=== PATIENT | female | born 1990 | race Caucasian/White ===

== ENCOUNTER 2019-07-06 17:17 | Inpatient (IN) | payer MEDICAID ==
[~2019-07-06] VITALS: Ht 165.1 cm; Wt 84.5 kg
[2019-07-06 17:54] VITALS: BP 109/67
[2019-07-06] MEDS ORDERED: OXYTOCIN 30U/ 0.9% NaCL 500ML 500 ML ONE (19:14)
[2019-07-06] MEDS ORDERED: NEWBORN KIT ONE (19:14)
[2019-07-06] MEDS ORDERED: SODIUM CITRATE/CITRIC ACID 30 ML UDC ONE (19:23)
[2019-07-06] MEDS ORDERED: METOCLOPRAMIDE 5 MG/ML, 2ML ONE (19:23)
[2019-07-06 19:28] LABS: BASOPHILS # (AUTO) 0.04 x10^3/uL (0-0.1); BASOPHILS % (AUTO) 0 % (0-1); EOSINOPHILS # (AUTO) 0.16 x10^3/uL (0-0.4); EOSINOPHILS % (AUTO) 2 % (1-7); LYMPHOCYTES # (AUTO) 1.83 x10^3/uL (1-3.4); LYMPHOCYTES % (AUTO) 17 % (22-44); MD NO; MEAN CORPUSCULAR HEMOGLOBIN 29.7 pg (27.0-34.8); MEAN CORPUSCULAR HGB CONC 33.6 g/dL (32.4-35.8); MEAN CORPUSCULAR VOLUME 88.3 fL (80-100); MEAN PLATELET VOLUME 8.7 fL (7.4-10.4); MONOCYTES # (AUTO) 0.64 x10^3/uL (0.2-0.8); MONOCYTES % (AUTO) 6 % (2-9); NEUTROPHILS # (AUTO) 8.05 x10^3/uL (1.8-6.8); NEUTROPHILS % (AUTO) 75 % (42-75); PLATELET COUNT 158 x10^3/uL (130-400); RED BLOOD COUNT 4.02 x10^6/uL (3.82-5.3); RED CELL DISTRIBUTION WIDTH 14.1 % (9.6-15.2)
[2019-07-06] MEDS ORDERED: METOCLOPRAMIDE 5 MG/ML, 2ML IV ONE (19:30)
[2019-07-06] MEDS ORDERED: SODIUM CITRATE/CITRIC ACID 30 ML UDC PO ONE (19:30)
[2019-07-06] MEDS ORDERED: LACTATED RINGERS 1,000 ML IVBOLUS ONE (19:30)
[2019-07-06] MEDS ORDERED: ONDANSETRON 2MG/ML, 2ML ONE (19:37)
[2019-07-06] MEDS ORDERED: OXYTOCIN 10 UNITS/ML, 1ML ONE (19:37)
[2019-07-06] MEDS ORDERED: DEXAMETHASONE 4 MG/ML, 1ML ONE (19:37)
[2019-07-06] MEDS ORDERED: PHENYLEPHRINE 10 MG/ML ONE (19:37)
[2019-07-06] MEDS ORDERED: KETOROLAC 30 MG/1 ML ONE (19:37)
[2019-07-06] MEDS ORDERED: FENTANYL PF 100 MCG/2ML ONE (19:37)
[2019-07-06] MEDS ORDERED: CEFAZOLIN 1,000 MG ONE (19:37)
[2019-07-06] MEDS ORDERED: EPHEDRINE 50 MG/ML, 1ML ONE (19:37)
[2019-07-06] MEDS: LACTATED RINGERS 1,000 ML IV SCH ×3 (19:55→21:33)
[2019-07-06] MEDS ORDERED: HYDROmorphone 2 MG/ML, 1ML ONE (20:54)
[2019-07-06] MEDS: OXYTOCIN 30U/ 0.9% NaCL 500ML 500 ML IV SCH (21:33)
[2019-07-06] MEDS ORDERED: METHYLERGONOVINE 0.2 MG/ML IM PRN (22:00)
[2019-07-06] MEDS ORDERED: CARBOPROST TROMETHAMINE 250 MCG/ML, 1ML IM PRN (22:00)
[2019-07-06] MEDS ORDERED: ACETAMINOPHEN 325 MG TABLET PO PRN (22:00)
[2019-07-06] MEDS ORDERED: METOCLOPRAMIDE 5 MG/ML, 2ML IV PRN (22:00)
[2019-07-06] MEDS ORDERED: ONDANSETRON 2MG/ML, 2ML IV PRN (22:00)
[2019-07-06] MEDS ORDERED: MISOPROSTOL 200 MCG TABLET PR PRN (22:00)
[2019-07-06 23:10] VITALS: BP 110/69
[2019-07-07] MEDS: LACTATED RINGERS 1,000 ML IV SCH ×8 (03:10→21:33)
[2019-07-07] MEDS: KETOROLAC 30 MG/1 ML IV SCH ×4 (03:17→23:33)
[2019-07-07 03:21] VITALS: BP 118/68
[2019-07-07 06:44] LABS: BASOPHILS % (AUTO) 0 % (0-1); EOSINOPHILS # (AUTO) 0.01 x10^3/uL (0-0.4); EOSINOPHILS % (AUTO) 0 % (1-7); LYMPHOCYTES # (AUTO) 1.26 x10^3/uL (1-3.4); LYMPHOCYTES % (AUTO) 8 % (22-44); MD NO; MEAN CORPUSCULAR HEMOGLOBIN 30.4 pg (27.0-34.8); MEAN CORPUSCULAR HGB CONC 34.2 g/dL (32.4-35.8); MEAN CORPUSCULAR VOLUME 88.9 fL (80-100); MEAN PLATELET VOLUME 8.9 fL (7.4-10.4); MONOCYTES # (AUTO) 0.66 x10^3/uL (0.2-0.8); MONOCYTES % (AUTO) 4 % (2-9); NEUTROPHILS # (AUTO) 14.01 x10^3/uL (1.8-6.8); NEUTROPHILS % (AUTO) 88 % (42-75); PLATELET COUNT 146 x10^3/uL (130-400)
[2019-07-07 07:20] VITALS: BP 120/76
[2019-07-07] MEDS: OXYTOCIN 30U/ 0.9% NaCL 500ML 500 ML IV SCH ×2 (07:33→17:33)
[2019-07-07] MEDS: PRENATAL VIT/IRON/FA 1 EACH TABLET PO SCH ×2 (09:00→09:29)
[2019-07-07] MEDS: DOCUSATE 100 MG CAPSULE PO PRN (09:29)
[2019-07-07] MEDS: SIMETHICONE 80 MG CHEW TAB PO PRN ×2 (09:30→16:15)
[2019-07-07] MEDS: OXYcodone/APAP 5/325MG TABLET PO PRN ×4 (11:39→20:51)
[2019-07-07 12:30] VITALS: BP 114/77
[2019-07-07 15:10] VITALS: BP 128/85
[2019-07-07 20:00] VITALS: BP 117/76
[2019-07-08] MEDS: LACTATED RINGERS 1,000 ML IV SCH ×9 (03:10→23:33)
[2019-07-08] MEDS: KETOROLAC 30 MG/1 ML IV SCH ×4 (03:15→21:15)
[2019-07-08] MEDS: OXYTOCIN 30U/ 0.9% NaCL 500ML 500 ML IV SCH ×3 (03:33→23:33)
[2019-07-08] MEDS: OXYcodone/APAP 5/325MG TABLET PO PRN ×5 (04:04→21:42)
[2019-07-08] MEDS: IBUPROFEN 600 MG TABLET PO PRN (07:35)
[2019-07-08] MEDS: DOCUSATE 100 MG CAPSULE PO PRN ×2 (07:35→21:42)
[2019-07-08] MEDS: SIMETHICONE 80 MG CHEW TAB PO PRN ×3 (07:35→21:41)
[2019-07-08 08:04] VITALS: BP 117/81
[2019-07-08] MEDS: PRENATAL VIT/IRON/FA 1 EACH TABLET PO SCH (09:00)
[2019-07-08 20:00] VITALS: BP 114/81
[2019-07-09] MEDS: SIMETHICONE 80 MG CHEW TAB PO PRN ×3 (02:31→15:32)
[2019-07-09] MEDS: IBUPROFEN 600 MG TABLET PO PRN ×3 (02:32→15:31)
[2019-07-09] MEDS: OXYcodone/APAP 5/325MG TABLET PO PRN ×3 (02:32→13:21)
[2019-07-09] MEDS: LACTATED RINGERS 1,000 ML IV SCH (03:10)
[2019-07-09 07:10] VITALS: BP 118/81
[2019-07-09] MEDS: PRENATAL VIT/IRON/FA 1 EACH TABLET PO SCH (08:14)
[2019-07-09] MEDS: DOCUSATE 100 MG CAPSULE PO PRN (08:15)
[2019-07-09 12:15] VITALS: BP 105/71
[2019-07-09] MEDS ORDERED: OXYC-302 PO (15:11)
[2019-07-09] MEDS ORDERED: IBUP-1223 PO (15:12)
== END 2019-07-09 15:50 | disposition home or self-care (01) | DRG 540 ==
LOC: LDOP 17:17 → LDIP 19:17 → 2NW 23:09
PROVIDERS: ADMIT Obstetrics & Gynecology; ATTEND Obstetrics & Gynecology
PROC: 10D00Z1 Extraction of Products of Conception, Low, Open Approach (ICD-10-PCS; principal; 2019-07-06)
DX: O76 Abnormality in fetal heart rate and rhythm complicating labor and delivery (principal); O99.42 Diseases of the circulatory system complicating childbirth; Z37.0 Single live birth; Z3A.38 38 weeks gestation of pregnancy; Z83.3 Family history of diabetes mellitus; O90.89 Other complications of the puerperium, not elsewhere classified; G89.18 Other acute postprocedural pain
CPT/HCPCS: 36415; 76819; 82803; 85025; 86592; 86850; 86900; G0378; J0690; J1100; J1170; J1885; J2405; J3010; J2370; J2590; J7120